=== PATIENT | male | born 1970 | race African-American/Black ===

== ENCOUNTER 2016-07-11 15:35 | Emergency (ER) | payer OTHER ==
--- NOTE | 2016-07-11 15:50 | ER Document Report ---
ED Medical Screen (RME) - General Stated Complaint: RIGHT CALVE PAIN Notes: patient is a 45 year old male with 3 days of right calf swelling and pain. no injury denies h/o blood clots -travel, surgery +tobacco use I have greeted and performed a rapid initial assessment of this patient. A comprehensive ED assessment and evaluation of the patient, analysis of test results and completion of the medical decision making process will be conducted by additional ED providers. TRAVEL OUTSIDE OF THE [place] IN LAST 30 DAYS: No
== END 2016-07-11 21:35 | disposition left against medical advice (07) ==
LOC: ER 15:35
DX: M79.661 Pain in right lower leg (principal); M79.89 Other specified soft tissue disorders; Z53.20 Procedure and treatment not carried out because of patient's decision for unspecified reasons
CPT/HCPCS: 93971; 99281

== ENCOUNTER 2019-06-03 07:47 | Day surgery (SDC) | payer OTHER ==
[2019-06-03] MEDS ORDERED: PROPOFOL INJ 200 MG/20 ML VIAL IV ONE ×2 (11:56→12:59)
[2019-06-03 12:21] LABS: POTASSIUM 4.3 mmol/L (3.6-5.0)
[2019-06-03] MEDS ORDERED: ONDANSETRON HCL INJ/PF 4 MG/2 ML SDV IV PRN (12:31)
[2019-06-03 14:33] VITALS: BP 137/100
--- NOTE | 2019-06-03 14:45 | Operative Report ---
Operative Report DATE OF SURGERY: 06/03/19 Operative Report: The risk, benefits and alternatives of the procedure including the risk of bleeding, perforation requiring surgery have been explained to the patient in detail and informed consent has been obtained. Patient is placed in a left, lateral decubital position. Timeout was called. Propofol medication is administered. Rectal examination is done which did not reveal any masses, tears or fissures. An Olympus videoscope was introduced into the patient's rectum. Scope was then carefully advanced all the way to the cecum. Cecum was identified by the usual anatomical landmarks including the ileocecal valve as well as appendiceal office. Photodocumentation is obtained. Prep was really not adequate. Also the patient has significant amount of spasm during the procedure. The scope was then sequentially pulled back via the rest segments of the colon including the ascending colon, pancreatic, transverse colon, splenic flexure, descending colon finding to the rectosigmoid portions of the colon. Retroflexion maneuvers performed. The risks benefits and alternatives of the procedure explained to the patient in detail and informed consent is obtained.A GIF Olympus video scope was inserted into the patient's mouth and hypopharynx, the esophagus is identified intubated and insufflated, the scope was then advanced through the esophagus stomach and duodenum, retroflexion maneuver is done the esophagus stomach and first and second portions of the duodenum examined PREOPERATIVE DIAGNOSIS: Change in bowel habits. Gastroesophageal reflux disease POSTOPERATIVE DIAGNOSIS: Diverticulosis without any evidence of diverticulitis. Colon polyp was removed via snare polypectomy and retrieved. Right colon inflammation status post biopsy. Internal hemorrhoids. Duodenitis. Gastritis status post biopsy OPERATION: Colonoscopy with snare polypectomy. Colonoscopy biopsy. EGD with biopsy SURGEON: LEWIS NEWELL ANESTHESIA: LMAC TISSUE REMOVED OR ALTERED: As noted above. COMPLICATIONS: None. ESTIMATED BLOOD LOSS: None. INTRAOPERATIVE FINDINGS: As noted above. PROCEDURE: Patient tolerated the procedure well. No immediate postprocedure complications are noted. Patient is discharged in good condition. Discharge date 06/03/2019. Discharge diet: Regular. Discharge activity: Regular. 2 to 3-week follow-up to discuss findings. Patient is instructed to call the office or proceed to the emergency room should there be any further problems or questions. Wait on the pathology. 3-year surveillance colonoscopy.
--- NOTE | 2019-06-03 21:58 | EKG REPORT ---
SEVERITY:- ABNORMAL ECG - SINUS RHYTHM ABNRM R PROG, CONSIDER ASMI OR LEAD PLACEMENT : Confirmed by: Mone Alonso 03-Jun-2019 21:57:12
== END 2019-06-03 14:10 | disposition home or self-care (01) ==
LOC: OROUT 07:47
PROVIDERS: ATTEND Internal Medicine Gastroenterology
DX: D12.4 Benign neoplasm of descending colon (principal); K29.50 Unspecified chronic gastritis without bleeding; F17.210 Nicotine dependence, cigarettes, uncomplicated; K57.30 Diverticulosis of large intestine without perforation or abscess without bleeding; K52.9 Noninfective gastroenteritis and colitis, unspecified; K64.8 Other hemorrhoids; K29.80 Duodenitis without bleeding; I20.9 Angina pectoris, unspecified; E11.9 Type 2 diabetes mellitus without complications
CPT/HCPCS: 43239; 45380; 45385; 36415; 82947; 84132; 88305 ×2; 93005; 93010; 00813; J2704; 813